=== PATIENT | male | born 1945 | race Caucasian/White ===

== ENCOUNTER 2022-04-30 17:20 | Observation (INO) | payer OTHER, SELFPAY ==
[2022-04-30 17:21] VITALS: BP 135/93; PULSE 82; RESP 16; TEMP 36.3; O2SAT 96; BMI 19.5
--- NOTE | 2022-04-30 17:38 | ED.VIS.BACK ---
HPI History of Present Illness Chief Complaint: Back Informant: patient Onset/Context/Timing Onset: Today Narrative Narrative: Patient present secondary to back pain and inability to ambulate. He reports a history of back problems and will usually have radiation of pain to his left leg with cramping. [place] from [place] and [place] the [place]. He picked up a heavy suitcase today and had sudden worsened pain in his low back, worse on the left. He has been able to urinate without difficulty. Because of pain and spasm he was having difficulty ambulating and called EMS. He denies any prior back surgeries or injections. [facility] Medical History Chronic back pain Parkinson's disease Allergy/AdvReac Type Severity Reaction Status Date / Time No Known Allergies Allergy Verified 04/30/22 17:28 Social History Smoking Status: Former smoker ROS ROS ED Constitutional Constitutional ED: Denies chills or fever(s) Eyes Eyes: Denies change in vision or discharge from eye(s) ENT ENT ED: Denies discharge from eye(s), rhinorrhea or sore throat Cardiovascular Cardiovascular: Denies chest pain or palpitations Respiratory/Chest Respiratory/Chest: Denies cough or dyspnea Gastrointestinal Gastrointestinal: Denies abdominal pain, diarrhea, nausea or vomiting Genitourinary Genitourinary ED: Denies difficulty urinating or dysuria Musculoskeletal Musculoskeletal: Reports back pain; Denies extremity pain Integumentary Denies Abrasions or rash Neurologic Neurologic: Denies headache(s) or weakness Allergic/Immunologic Allergic/Immunologic ED: Denies lip swelling or urticaria EXAM Physical Exam Const Vital Signs: 04/30/22 17:21 Temperature 97.4 F L Temperature Source Oral Pulse Rate 82 Respiratory Rate 16 Blood Pressure 135/93 H Blood Pressure Mean 107 Pulse Ox 96 Oxygen Delivery Method Room Air Positive well nourished and well developed General Appearance ED: well developed HEENT Reports moist mucous membranes Eyes PERRL and EOMs intact bilaterally Resp normal respiratory effort and clear to auscultation bilaterally Cardio regular rate and regular rhythm GI normal to inspection, nondistended, normoactive bowel sounds, soft to palpation and non-tender Back/Spine Back/Spine Narrative: Mild tenderness in the left lower lumbar paraspinal region. Extremity normal to inspection Neuro oriented x3 and no sensory deficits noted Neuro Narrative: Good strength on lower extremity testing. 1+ left patellar reflex, 2+ right. Psych mental status grossly normal Skin no rashes or lesions noted MDM MDM MDM Narrative Medical decision making narrative: Patient was given morphine and Zofran along with a Lidoderm patch. Blood work obtained. Lab Data Attestation: I reviewed the patient's lab results. Labs: Laboratory Results - last 24 hr 04/30/22 04/30/22 04/30/22 18:00 18:00 19:38 WBC 7.9 RBC 4.40 L Hgb 13.6 Hct 40.4 MCV 91.8 MCH 30.9 MCHC 33.7 RDW Std Deviation 45.4 H RDW Coeff of Angelia 13.3 Plt Count 258 MPV 9.8 Immature Gran % (Auto) 0.500 Neut % (Auto) 74.4 H Lymph % (Auto) 10.7 L Atkinson % (Auto) 10.3 H Eos % (Auto) 3.7 Baso % (Auto) 0.4 Absolute Neuts (auto) 5.9 Absolute Lymphs (auto) 0.85 Nucleated RBC % 0 Sodium 140 Potassium 5.3 H Chloride 109 H Carbon Dioxide 27.0 Anion Gap 4 L BUN 20 H Creatinine 0.91 Estim Creat Clear Calc 59.33 Est GFR (MDRD) Af Amer 103 Est GFR (MDRD) Non-Af 85 BUN/Creatinine Ratio 21.9 H Glucose 103 Calcium 9.5 Urine Color Yellow Urine Clarity Clear Urine pH 5.0 Ur Specific [place] 1.010 Urine Protein Negative Urine Glucose (UA) Normal Urine Ketones 5 H Urine Occult Blood 10 H Urine Nitrite Negative Urine Bilirubin Negative Urine Urobilinogen 1 H Ur Leukocyte Esterase 100 H Urine RBC 0-5 SEEN Urine WBC 5-10 SEEN Ur Squamous Epith Cells 0 SEEN Urine Bacteria RARE Urine Mucus 0 SEEN Treatment and Re-Evaluation Narrative: Lab work is unremarkable. After receiving initial dose of morphine and Zofran patient states that while he does not move his pain is not too bad. He was reporting urinary frequency. Nurse asked him to stand at bedside to try to get a urine but he states he is in too much pain to move and stand. At that time urine is collected, L-spine x-rays were obtained, patient given a second dose of morphine. L-spine x-rays per my interpretation reveal arthritic changes only. Urinalysis reveals no acute infection. At this time patient is laying supine in the bed and states he still is not able to move or stand. I will speak with hospitalist regarding observation for pain control and physical therapy. Discharge Plan Triage Chief Complaint: Back ED Provider: Bridgett Yañez Dx/Rx/DC Orders Clinical Impression: Intractable back pain Primary Care Provider: Care Physician,No Primary Referrals: Care Physician,No Primary [Primary Care Provider] - Disposition Disposition: Acute Care Hospital [facility]
[2022-04-30 18:14] LABS: Absolute Lymphocyte Count 0.85 X10^3/uL (0.83-4.51); Absolute Neutrophil Count 5.9 X10^3/uL (2.0-7.7); Basophil# 0.03 X10^3/uL; Basophil% 0.4 % (0-1); Eosinophil# 0.29 X10^3/uL; Eosinophils% 3.7 % (0-5); Hematocrit 40.4 % (40-54); Hemoglobin 13.6 g/dL (13.0-16.5); Lymphocyte # 0.85 X10^3/ul (0.83-4.51); Lymphocyte % 10.7 % (19-41); Mean Corp Hgb Conc 33.7 g/dL (32-36); Mean Corpuscular Hgb 30.9 pg (27.0-32.0); Mean Corpuscular Volume 91.8 fL (80-94); Mean Platelet Vol. 9.8 fl (6.2-12.0); Monocyte# 0.82 X10^3/uL; Monocyte% 10.3 % (0-10); NRBC Flagged by Analyzer 0 % (0-5); Neutrophil % 74.4 % (47-70); Platelet Count 258 K/mm3 (150-450); RBC Distribution Width CV 13.3 % (11.6-14.6); RBC Distribution Width SD 45.4 fl (35.1-43.9); White Blood Count 7.9 K/mm3 (4.4-11.0)
[2022-04-30] MEDS: Ondansetron 4 MG/2 ML Vial IV (18:17)
[2022-04-30] MEDS: Morphine 4 MG/ML Syringe IV ×2 (18:17→20:08)
[2022-04-30] MEDS: Lidocaine 5% Patch 1 PATCH TOPICAL (18:18)
[2022-04-30 18:26] LABS: Anion Gap 4 (5-15); BUN 20 mg/dL (7-18); BUN/Creat Ratio 21.9 RATIO (10-20); Calcium,Total 9.5 mg/dL (8.5-10.1); Chloride 109 mmol/L (98-107); Creatinine, Serum 0.91 mg/dL (0.70-1.30); EST Glomerular Filtration Rate 85 mL/min (>60); Est Glom Filt Rate - Afr Amer 103 mL/min (>60); Estimated Creatinine Clearance 59.33 ml/min; Glucose 103 mg/dL (74-106); Potassium 5.3 mmol/L (3.5-5.1); Sodium Level 140 mmol/L (136-145)
--- NOTE | 2022-04-30 19:12 | CM.ED ---
Addendum entered by Cristy Wets 04/30/22 21:24: [facility]. Original Note: SW Note SW noted that patient had no PCP. SW met with patient and his . 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 ROBBI provided list of PCP providers through [facility] and [facility] for patient's review. Plan: [facility] Healthcare Directory provided Cristy AZEVEDO
[2022-04-30 19:43] LABS: Mucous, Urine 0 SEEN /hpf (<or=2+); Squamous Epithelial Cells - UA 0 SEEN /hpf (0-5)
[2022-04-30 19:53] LABS: Color, Urine Yellow (Yellow); Glucose, Dipstick Normal (Normal); Ketone-Dipstick 5 mg/dl (Negative); Leukocyte Esterase-Dipstick 100 /ul (Negative); Nitrite-Dipstick Negative (Negative); Occult Blood-Urine 10 /ul (Negative); Protein-Dipstick Negative (Negative); Urine Bilirubin Dipstick Negative (Negative); Urine Clarity Clear (Clear); Urine Urobilinogen 1 mg/dl (Normal)
[2022-04-30 20:03] LABS: Bacteria RARE /hpf (None Seen); Red Blood Cells-Urine 0-5 SEEN /hpf (0-5); White Blood Cells 5-10 SEEN /hpf (0-5)
[2022-04-30 20:08] VITALS: BP 108/78; PULSE 84; RESP 16; O2SAT 97
--- NOTE | 2022-04-30 20:19 | RAD_ITS ---
STUDY: X-RAY - LUMBAR SPINE REASON FOR EXAM: Male, 76 years old. pain TECHNIQUE: XR Spine Lumbar 2 or 3 Views COMPARISON: None FINDINGS: Normal lumbar lordosis. There is no substantial scoliosis. There is a normal alignment of the vertebrae. Vacuum disc phenomenon. There is multilevel endplate spondylosis of the lumbar vertebrae. There is multi-level degenerative disc disease with multi-level disc space narrowing. There are atherosclerotic vascular calcifications. The soft tissue structures are unremarkable. RAD/Lumbar Spine 2 or 3 Views IMPRESSION: Degenerative changes of the spine, as detailed above. Electronically Signed: Gilberto Best MD at 20:46 EDT ,
[2022-04-30 20:52] VITALS: BP 108/78; PULSE 84; RESP 16; TEMP 36.3; O2SAT 97
--- NOTE | 2022-04-30 21:05 | PCM.HP.STD ---
HPI - General General Date of Admission: 04/30/22 Date of Service: 04/30/22 Chief Complaint: Lower back pain HPI Narrative IRIS RUSSO, is a 76 M with a significant history of chronic back pain and Parkinson disease who presents to the emergency department with excruciating lower back pain. He described the pain as sharp. The pain radiates to his bilateral hips. Laying still improves the pain and moving worsens the pain. The pain worsened on the day of presentation. The pain started after lifting heavy objects. Because of pain he is unable to move and do his activities of daily living. Reports increasing urinary frequency. Last time bowels moved was 2 days ago but this is his usual pattern. [facility] Medical History Chronic back pain Parkinson's disease Home Medications Entacarpone 200 mg PO/SL DAILY 04/30/22 [History Last Taken Unknown] Madopar 250 mg PO/SL DAILY 04/30/22 [History Last Taken Unknown] Nootropil 800 mg PO/SL TID 04/30/22 [History Last Taken Unknown] Sifrol 0.25 mg PO/SL DAILY 04/30/22 [History Last Taken Unknown] aspirin 81 mg capsule 81 mg PO DAILY 04/30/22 [History Last Taken Unknown] Allergy/AdvReac Type Severity Reaction Status Date / Time No Known Allergies Allergy Verified 04/30/22 17:28 Family History Other CVA (cerebral vascular accident) Diabetes Heart disease Surgical History H/O hernia repair Hx of appendectomy Social History Smoking Status: Former smoker ROS ROS Narrative Pertinent positives and pertinent negatives as noted in HPI. All other systems were reviewed and are negative. Vital Signs Vital Signs Vital Signs: 04/30/22 17:21 04/30/22 20:08 04/30/22 20:52 Temperature 97.4 F L 97.4 F L Temperature Source Oral Oral Pulse Rate 82 84 84 Respiratory Rate 16 16 16 Blood Pressure 135/93 H 108/78 108/78 Blood Pressure Mean 107 88 88 Pulse Ox 96 97 97 Oxygen Delivery Method Room Air Room Air Room Air Weight Weight: 61.7 kg Body Mass Index (BMI) 19.5 Physical Exam Narrative Physical exam: General: Well-nourished, well-developed. Head: Normocephalic, atraumatic, no tenderness Eyes: Vision is grossly intact. EOMI ENT, no trauma, moist mucous membranes, no rhinorrhea Neck: Nontender, full range of motion, no spinal tenderness, deformities, step-off CVS: Regular rate and rhythm. S1-S2 present. No murmur, gallop or rub. Respiratory : clear to auscultation bilaterally, chest wall nontender, no wheezing Abdomen: Soft, nontender, nondistended, normal bowel sounds, no masses : Deferred Back: Nontender, no CVA tenderness, no midline spinal tenderness, deformities, step-offs Extremities: Nontender full range of motion, no trauma. Strength in all extremities 5 out of 5. Skin: Normal color, no trauma, abrasions Neuro: Alert, oriented, cranial nerves II through XII grossly intact. Psychiatry: Normal mood. Normal affect. Not depressed. Not anxious. Results Lab / Micro Data Result Diagrams: 04/30/22 18:00 04/30/22 18:00 Labs: Laboratory Results - last 24 hr 04/30/22 18:00: WBC 7.9, RBC 4.40 L, Hgb 13.6, Hct 40.4, MCV 91.8, MCH 30.9, MCHC 33.7, RDW Std Deviation 45.4 H, RDW Coeff of Angelia 13.3, Plt Count 258, MPV 9.8, Immature Gran % (Auto) 0.500, Neut % (Auto) 74.4 H, Lymph % (Auto) 10.7 L, Sullivan % (Auto) 10.3 H, Eos % (Auto) 3.7, Baso % (Auto) 0.4, Absolute Neuts (auto) 5.9, Absolute Lymphs (auto) 0.85, Nucleated RBC % 0 04/30/22 18:00: Sodium 140, Potassium 5.3 H, Chloride 109 H, Carbon Dioxide 27.0, Anion Gap 4 L, BUN 20 H, Creatinine 0.91, Estim Creat Clear Calc 59.33, Est GFR (MDRD) Af Amer 103, Est GFR (MDRD) Non-Af 85, BUN/Creatinine Ratio 21.9 H, Glucose 103, Calcium 9.5 04/30/22 19:38: Urine Color Yellow, Urine Clarity Clear, Urine pH 5.0, Ur Specific [place] 1.010, Urine Protein Negative, Urine Glucose (UA) Normal, Urine Ketones 5 H, Urine Occult Blood 10 H, Urine Nitrite Negative, Urine Bilirubin Negative, Urine Urobilinogen 1 H, Ur Leukocyte Esterase 100 H, Urine RBC 0-5 SEEN, Urine WBC 5-10 SEEN, Ur Squamous Epith Cells 0 SEEN, Urine Bacteria RARE, Urine Mucus 0 SEEN Radiology Impression Lumbar Spine X-Ray 04/30/22 20:19 IMPRESSION: Degenerative changes of the spine, as detailed above. Electronically Signed: Gilberto Best MD at 20:46 EDT Reading Location ID and State: [facility] / [place] , Service support , Assessment & Plan Assessment/Plan (1) Parkinson's disease: (2) Intractable back pain: PLAN: Plan Intractable lower back pain Lumbar spine x-ray was visualized and independently interpreted. I agree with interpretation of DJD changes of the spine. As needed Tylenol and oxycodone ordered. PT and OT to work with patient. Case management consult Increased urinary frequency CBC showed normal white counts. UA appears abnormal but not overly impressive. Urine culture ordered. Parkinson's disease Likely contributing to mobility issues. Continue home medications. PT and OT consult as above. DVT prophylaxis Subcutaneous Lovenox ordered. Charges/Coding Visit Charges OBSV E&M: 76767 Initial observation care L2
[2022-04-30 21:45] VITALS: BMI 18.6
[2022-04-30 22:14] VITALS: BP 122/63; PULSE 91; RESP 18; TEMP 36.7; O2SAT 98
[2022-04-30] MEDS: Acetaminophen 325 MG Tablet 650 MG PO (22:40)
[2022-04-30] MEDS: oxyCODONE 5 MG Tablet PO (22:40)
[2022-05-01 04:00] VITALS: BP 106/63; PULSE 82; RESP 16; TEMP 37.2; O2SAT 96
[2022-05-01 06:34] LABS: Absolute Lymphocyte Count 0.66 X10^3/uL (0.83-4.51); Absolute Neutrophil Count 5.4 X10^3/uL (2.0-7.7); Basophil# 0.02 X10^3/uL; Basophil% 0.3 % (0-1); Eosinophil# 0.27 X10^3/uL; Eosinophils% 3.7 % (0-5); Hematocrit 39.5 % (40-54); Hemoglobin 13.1 g/dL (13.0-16.5); Lymphocyte # 0.66 X10^3/ul (0.83-4.51); Lymphocyte % 9.1 % (19-41); Mean Corp Hgb Conc 33.2 g/dL (32-36); Mean Corpuscular Hgb 30.6 pg (27.0-32.0); Mean Corpuscular Volume 92.3 fL (80-94); Mean Platelet Vol. 9.9 fl (6.2-12.0); Monocyte# 0.88 X10^3/uL; Monocyte% 12.2 % (0-10); NRBC Flagged by Analyzer 0 % (0-5); Neutrophil % 74.6 % (47-70); Platelet Count 241 K/mm3 (150-450); RBC Distribution Width CV 13.4 % (11.6-14.6); RBC Distribution Width SD 46.1 fl (35.1-43.9); Red Blood Count 4.28 M/mm3 (4.6-6.2); White Blood Count 7.2 K/mm3 (4.4-11.0)
[2022-05-01 07:12] LABS: Anion Gap 4 (5-15); BUN 22 mg/dL (7-18); BUN/Creat Ratio 22.4 RATIO (10-20); Calcium,Total 8.8 mg/dL (8.5-10.1); Chloride 106 mmol/L (98-107); Creatinine, Serum 0.98 mg/dL (0.70-1.30); EST Glomerular Filtration Rate 79 mL/min (>60); Est Glom Filt Rate - Afr Amer 95 mL/min (>60); Estimated Creatinine Clearance 52.77 ml/min; Glucose 100 mg/dL (74-106); Potassium 4.5 mmol/L (3.5-5.1); Sodium Level 138 mmol/L (136-145)
[2022-05-01 07:13] VITALS: O2SAT 95
[2022-05-01 09:58] VITALS: BP 107/68; PULSE 95; RESP 18; TEMP 36.6; O2SAT 95
[2022-05-01] MEDS: Enoxaparin 40 MG/0.4 ML Syringe SC (10:01)
[2022-05-01] MEDS: Aspirin 81 MG TAB.CHEW PO (10:01)
--- NOTE | 2022-05-01 10:08 | DCINST_ITS ---
Discharge Instructions Diet Discharge Diet: No restrictions Activity Discharge Activity: Return to Normal Activity Dressing / Incision Call your doctor if you observe: Numbness or Tingling and Uncontrolled pain Follow Up Care Test Results: Test results from this visit will be discussed in further detail at your follow- up appointment, if applicable. Discharge Plan Admission Admit Date/Time: 04/30/22 20:49 Primary Reason for Your Visit: Intractable Back Pain Attending Provider: Samm Bran Primary Care Provider: Sabina Roy Primary Consulting Providers: Bello Burton Discharge Orders/Prescriptions Prescriptions: New acetaminophen [Tylenol] 325 mg Tablet 650 mg PO Q6H PRN PRN (Reason: Pain Score 1-10/Temp > 100.7 F) Qty: 0 0RF oxycodone 5 mg Tablet 5 mg PO Q4H PRN PRN (Reason: Pain Score 4-5) 2 Days Qty: 10 0RF prednisone 20 mg tablet 40 mg PO DAILY Qty: 14 0RF Continued aspirin 81 mg Capsule 81 mg PO DAILY Entacarpone 200 mg PO/SL BID Madopar 250 mg PO/SL BID Sifrol 0.25 mg PO/SL BID Nootropil 800 mg PO/SL TID Referrals / Follow Up: Care Physician,Sabina Primary [Primary Care Provider] - Disposition Disposition (needs filled in before D/C Order can be placed): Home, Self Care
--- NOTE | 2022-05-01 10:20 | PCM.DC.SUM ---
Documented by User: VALERY Sandra 05/01/22 12:12 Providers Date of Admission: 04/30/22 Date of Discharge: 05/01/22 Primary Care Physician: No Primary Care Phys Reason For Visit: INTRACTABLE BACK PAIN Diagnosis Discharge Diagnosis (1) Parkinson's disease: Status: Acute Code(s): G20 - Parkinson's disease (2) Intractable back pain: Status: Acute Code(s): M54.9 - Dorsalgia, unspecified Medications at Discharge Home Medications Entacarpone 200 mg PO/SL BID 04/30/22 Madopar 250 mg PO/SL BID 04/30/22 Nootropil 800 mg PO/SL TID 04/30/22 Sifrol 0.25 mg PO/SL BID 04/30/22 aspirin 81 mg capsule 81 mg PO DAILY 04/30/22 acetaminophen 325 mg tablet (Tylenol) 650 mg PO Q6H PRN PRN Pain Score 1-10/Temp > 100.7 F #0 tabs 05/01/22 oxycodone 5 mg tablet 5 mg PO Q4H PRN PRN Pain Score 4-5 2 days #10 tabs 05/01/22 prednisone 20 mg tablet 40 mg PO DAILY #14 tabs 05/01/22 Hospital Course Operations None Procedures None Summary of Care Provided Minutes Spent on Discharge: 25 Hospital Course: Patient is a 76-year-old male who came in with intractable back pain following heavy lifting. Patient's x-rays show degenerative changes of the spine. Patient evaluated by PT and OT. Patient will be discharged home with prednisone and oxycodone. Patient will need to follow-up with primary care provider Physical Exam Const alert, oriented x3 and no apparent distress HEENT normocephalic and head/scalp atraumatic Eyes conjunctivae normal and no scleral icterus Neck no lymphadenopathy and supple General: trachea midline Resp normal respiratory effort, normal air movement and clear to auscultation bilaterally Cardio regular rate, regular rhythm, S1 normal heart sound, S2 normal heart sound and peripheral pulses 2+ throughout GI normal to inspection, nondistended, normoactive bowel sounds, soft to palpation and non-tender Extremity normal to inspection, normal capillary refill and no clubbing, cyanosis or edema Extremity Narrative: Patient has negative straight leg raise Peripheral Pulses: Yes pulses 2+ throughout Skin skin turgor normal Neuro no focal motor deficits and no sensory deficits noted Psych affect normal Appearance: appropriate Weight / BMI Weight Weight: 130 lb 4.691 oz Body Mass Index (BMI) 18.6 ABG / Lab / Microbiology Data Result Diagrams: 05/01/22 05:40 05/01/22 05:40 Laboratory: Laboratory Results - last 24 hr 04/30/22 18:00: WBC 7.9, RBC 4.40 L, Hgb 13.6, Hct 40.4, MCV 91.8, MCH 30.9, MCHC 33.7, RDW Std Deviation 45.4 H, RDW Coeff of Angelia 13.3, Plt Count 258, MPV 9.8, Immature Gran % (Auto) 0.500, Neut % (Auto) 74.4 H, Lymph % (Auto) 10.7 L, Todd % (Auto) 10.3 H, Eos % (Auto) 3.7, Baso % (Auto) 0.4, Absolute Neuts (auto) 5.9, Absolute Lymphs (auto) 0.85, Nucleated RBC % 0 04/30/22 18:00: Sodium 140, Potassium 5.3 H, Chloride 109 H, Carbon Dioxide 27.0, Anion Gap 4 L, BUN 20 H, Creatinine 0.91, Estim Creat Clear Calc 59.33, Est GFR (MDRD) Af Amer 103, Est GFR (MDRD) Non-Af 85, BUN/Creatinine Ratio 21.9 H, Glucose 103, Calcium 9.5 04/30/22 19:38: Urine Color Yellow, Urine Clarity Clear, Urine pH 5.0, Ur Specific [place] 1.010, Urine Protein Negative, Urine Glucose (UA) Normal, Urine Ketones 5 H, Urine Occult Blood 10 H, Urine Nitrite Negative, Urine Bilirubin Negative, Urine Urobilinogen 1 H, Ur Leukocyte Esterase 100 H, Urine RBC 0-5 SEEN, Urine WBC 5-10 SEEN, Ur Squamous Epith Cells 0 SEEN, Urine Bacteria RARE, Urine Mucus 0 SEEN 05/01/22 05:40: WBC 7.2, RBC 4.28 L, Hgb 13.1, Hct 39.5 L, MCV 92.3, MCH 30.6, MCHC 33.2, RDW Std Deviation 46.1 H, RDW Coeff of Angelia 13.4, Plt Count 241, MPV 9.9, Immature Gran % (Auto) 0.100, Neut % (Auto) 74.6 H, Lymph % (Auto) 9.1 L, Todd % (Auto) 12.2 H, Eos % (Auto) 3.7, Baso % (Auto) 0.3, Absolute Neuts (auto) 5.4, Absolute Lymphs (auto) 0.66 L, Nucleated RBC % 0 05/01/22 05:40: Sodium 138, Potassium 4.5, Chloride 106, Carbon Dioxide 28.0, Anion Gap 4 L, BUN 22 H, Creatinine 0.98, Estim Creat Clear Calc 52.77, Est GFR (MDRD) Af Amer 95, Est GFR (MDRD) Non-Af 79, BUN/Creatinine Ratio 22.4 H, Glucose 100, Calcium 8.8 Radiography Diagnostic Testing: Radiology Impression Lumbar Spine X-Ray 04/30/22 20:19 IMPRESSION: Degenerative changes of the spine, as detailed above. Electronically Signed: Gilberto Best MD at 20:46 EDT Reading Location ID and State: [address] [place] [address] , Service support , D/C Instructions Discharge Diet: No restrictions Lifting Restrictions: Avoid lifting more than 10 pounds until follow up with PCP Call your doctor if you observe: Numbness or Tingling and Uncontrolled pain Meaningful Use Info Meaningful Use Diagnoses (Choose all that apply): None applicable Discharge Plan Admission Admit Date/Time: 04/30/22 20:49 Primary Reason for Your Visit: Intractable Back Pain Attending Provider: Samm Bran Primary Care Provider: Care Physician,Sabina Primary Consulting Providers: Bello Burton Discharge Orders/Prescriptions Prescriptions: New acetaminophen [Tylenol] 325 mg Tablet 650 mg PO Q6H PRN PRN (Reason: Pain Score 1-10/Temp > 100.7 F) Qty: 0 0RF oxycodone 5 mg Tablet 5 mg PO Q4H PRN PRN (Reason: Pain Score 4-5) 2 Days Qty: 10 0RF prednisone 20 mg tablet 40 mg PO DAILY Qty: 14 0RF Continued aspirin 81 mg Capsule 81 mg PO DAILY Entacarpone 200 mg PO/SL BID Madopar 250 mg PO/SL BID Sifrol 0.25 mg PO/SL BID Nootropil 800 mg PO/SL TID Referrals / Follow Up: Care Physician,Sabina Primary [Primary Care Provider] - Disposition Disposition (needs filled in before D/C Order can be placed): Home, Self Care Documented by User: Dr. Samm Bran MD 05/01/22 12:27 Providers Date of Admission: 04/30/22 Reason For Visit: INTRACTABLE BACK PAIN Diagnosis Discharge Diagnosis (1) Parkinson's disease: Status: Acute Code(s): G20 - Parkinson's disease (2) Intractable back pain: Status: Acute Code(s): M54.9 - Dorsalgia, unspecified Medications at Discharge Home Medications Entacarpone 200 mg PO/SL BID 04/30/22 Madopar 250 mg PO/SL BID 04/30/22 Nootropil 800 mg PO/SL TID 04/30/22 Sifrol 0.25 mg PO/SL BID 04/30/22 aspirin 81 mg capsule 81 mg PO DAILY 04/30/22 acetaminophen 325 mg tablet (Tylenol) 650 mg PO Q6H PRN PRN Pain Score 1-10/Temp > 100.7 F #0 tabs 05/01/22 oxycodone 5 mg tablet 5 mg PO Q4H PRN PRN Pain Score 4-5 2 days #10 tabs 05/01/22 prednisone 20 mg tablet 40 mg PO DAILY #14 tabs 05/01/22 Hospital Course Summary of Care Provided Minutes Spent on Discharge: 38 ABG / Lab / Microbiology Data Result Diagrams: 05/01/22 05:40 05/01/22 05:40 Discharge Plan Admission Admit Date/Time: 04/30/22 20:49 Primary Reason for Your Visit: Intractable Back Pain Attending Provider: Samm Bran Primary Care Provider: Hayley Pablo,Sabina Primary Consulting Providers: Bello Burton Discharge Orders/Prescriptions Prescriptions: New acetaminophen [Tylenol] 325 mg Tablet 650 mg PO Q6H PRN PRN (Reason: Pain Score 1-10/Temp > 100.7 F) Qty: 0 0RF oxycodone 5 mg Tablet 5 mg PO Q4H PRN PRN (Reason: Pain Score 4-5) 2 Days Qty: 10 0RF prednisone 20 mg tablet 40 mg PO DAILY Qty: 14 0RF Continued aspirin 81 mg Capsule 81 mg PO DAILY Entacarpone 200 mg PO/SL BID Madopar 250 mg PO/SL BID Sifrol 0.25 mg PO/SL BID Nootropil 800 mg PO/SL TID Referrals / Follow Up: Care Physician,No Primary [Primary Care Provider] - Disposition Disposition (needs filled in before D/C Order can be placed): Home, Self Care Charges/Coding Addendum Addendum: Addendum: Dr. Bran I personally examined the patient and reviewed the chart. I agree with the above. 76-year-old male presented to the hospital with significant lower back pain. 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 He had a lumbar x-ray which just showed some degenerative disc changes is some retrolisthesis and malalignment. Today straight leg raise was negative bilaterally and he did not have any pain with palpation. I discussed with him that I did not want him to go home on any narcotics because of the constipation difficulties especially since he has chronic constipation issues to begin with. He did agree with some prednisone and potentially outpatient physical therapy if necessary. Physical therapy did work with him today and recommended a walker to assist with stability. I discussed with him the plan for discharge today he expressed understanding of the risk and benefits of going home and he would like to go home today. Total time spent on clinical and discharge planning was 38 minutes with more than half of that time spent by myself. Visit Charges OBSV E&M: 71987 Observation care discharge
--- NOTE | 2022-05-01 11:20 | CASEMGMT ---
LISA THOMPSON Face to Face with patient for initial transition planning/care coordination assessment. LISA THOMPSON introduced self and role at [facility]. Patient sitting in chair, alert and oriented, at bedside. Patient willing to participate in assessment and is able to answer all questions appropriately. Care providers, pharmacy, and demographics verified. Patient wishes to discharge home, denies need for home health at this time. Patient states he has no further needs or concerns at this time. CM to follow for discharge planning needs that may arise. PCP: PCP is in [place] [facility] [facility] Specialists: none Preferred Pharmacy: [facility] retail Insurance: [employer], [facility] Prescription Benefit: yes Living Will/HPOA: yes, Supriya Oliva LNOK: , son Living Arrangements: Patient is currently stay at [facility] and then son is coming from [place] to take parents to [place] to visit with them. 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 Patient is normally independent at home. Transportation: friends DME/HHC: Patient denies DME. Patient interested in walker. LISA THOMPSON to obtain script and assist with walker setup. DME companies reviewed with patient and would like [employer]. Disposition Plan: Patient to discharge home with new walker, family support, and follow-up plans in place. Valery DAVIS, RN, CM
--- NOTE | 2022-05-01 12:10 | CASEMGMT ---
LISA THOMPSON received script from hospitalist. LISA THOMPSON faxed script with referral to [facility] and arranged for walker to be delivered to patient's room. LISA THOMPSON updated patient and . Patient had no further questions or concerns.
--- NOTE | 2022-05-01 13:40 | CHAPLAIN ---
Type of Pastoral Visit _x__ Initial Visit ___ Follow-up Visit ___ On-call Visit ___ General Patient Visit ___ Spiritual Assessment ___ Family Conference ___ Bereavement ___ Rapid Response ___ Code Blue ___ Other (describe below) Pastoral Care Referral From _x__ Patient ___ Family ___ Nurse ___ Physician ___ Asphalt Worker ___ Party Host ___ Other (describe below) Sacrament/Intervention _x__ Active listening ___ Anointing ___ Hoahaoism ___ Bereavement ___ Communion _x__ Lindsay exploration ___ _x__ Life review _x__ Prayer ___ Reconciliation ___ Sacrament of Sick ___ Supportive presence ___ Wedding ___ Other (describe below) Pastoral Comments patient had a few visitors at this time but all very welcoming and asking for spiritual care and prayer; 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
[2022-05-01 15:25] VITALS: BP 117/67; PULSE 89; RESP 18; TEMP 36.2; O2SAT 96
== END 2022-05-01 15:54 | disposition home or self-care (01) ==
LOC: ED 20:44 → MS3 21:06
PROVIDERS: Admitting Provider Hospitalist; Emergency Provider Emergency Medicine; Visit Provider Family Medicine
DX: M54.50 Low back pain, unspecified (principal); G20 Parkinson's disease; R26.2 Difficulty in walking, not elsewhere classified; M25.551 Pain in right hip; Z87.891 Personal history of nicotine dependence; M25.552 Pain in left hip; G89.29 Other chronic pain; Z79.899 Other long term (current) drug therapy; R35.0 Frequency of micturition
CPT/HCPCS: 36415; 72100; 80048; 81001; 85025; 87086; 96372; 96374; 96375; 96376; 97162; 97166; 99218; 99285; A4216; G0378; J2405